=== PATIENT | female | born 1960 | race Caucasian/White ===

== ENCOUNTER → 2016-09-08 | Outpatient (CLI) | payer MEDICAID | LOC: MAMMO 14:10 | DX: Z12.31 Encounter for screening mammogram for malignant neoplasm of breast (principal); R92.2 Inconclusive mammogram | CPT/HCPCS: G0202 ==

== ENCOUNTER 2018-11-16 09:21 | Emergency (ER) | payer MEDICAID ==
[2018-11-16] MEDS ORDERED: AUGMENTIN 875-1 EAC1 PO (09:43)
[2018-11-16] MEDS ORDERED: NORCO 325 MG-51 TA1 PO (09:43)
[2018-11-16 11:12] VITALS: BP 161/97
[2018-11-17] MEDS ORDERED: DELTASONE20 M1 PO (14:58)
[2018-11-17] MEDS ORDERED: VALACYCLOVIR1 GM PO (14:59)
== END 2018-11-16 09:58 | disposition home or self-care (01) ==
LOC: ED 09:21
DX: H66.92 Otitis media, unspecified, left ear (principal); J01.90 Acute sinusitis, unspecified; G51.0 Bell's palsy; Z88.8 Allergy status to other drugs, medicaments and biological substances

== ENCOUNTER 2018-11-17 10:19 | Emergency (ER) | payer MEDICAID ==
[~2018-11-17 10:19] MED LIST: AUGMENTIN 875-1 EAC1 PO; NORCO 325 MG-51 TA1 PO
[2018-11-17 10:48] LABS: EOS # 0.1 (0.04-0.40); EOS % 1.3 % (1.0-5.0); HEMATOCRIT 46.7 % (37.0-47.0); HEMOGLOBIN 14.5 g/dL (12.5-16.0); MEAN CELL VOLUME 94 fl (78-100); MEAN CORPUSCULAR HEMOGLOBIN 29 pg (27-31); MEAN CORPUSCULAR HGB CONC 31 g/dL (33-37); MONO # 0.4 (0.20-0.80); NEU # 5.7 (1.40-6.50); PLATELET COUNT 222 K/mm3 (130-400); RED BLOOD COUNT 4.98 M/mm3 (4.10-5.30); WHITE BLOOD COUNT 8.3 K/mm3 (4.8-10.8)
[2018-11-17 11:12] LABS: ALBUMIN 3.8 g/dL (3.5-5.0); CALCIUM 9.1 mg/dL (8.4-10.2); POTASSIUM 4.3 mmol/L (3.5-5.1); TOTAL BILIRUBIN 0.4 mg/dL (0.2-1.2); TOTAL PROTEIN 7.4 g/dL (6.4-8.3)
[2018-11-17] MEDS ORDERED: DELTASONE20 M1 PO (14:58)
[2018-11-17] MEDS ORDERED: VALACYCLOVIR1 GM PO (14:59)
[2018-11-17 15:58] VITALS: BP 135/84
== END 2018-11-17 15:58 | disposition home or self-care (01) ==
LOC: ED 10:19
PROVIDERS: Nurse Practitioner
DX: G51.0 Bell's palsy (principal); F32.9 Major depressive disorder, single episode, unspecified; F41.0 Panic disorder [episodic paroxysmal anxiety]; F17.290 Nicotine dependence, other tobacco product, uncomplicated; Z88.8 Allergy status to other drugs, medicaments and biological substances
CPT/HCPCS: J2405; J2930; J3010; Q9967

== ENCOUNTER → 2019-01-02 | Outpatient (CLI) | payer MEDICAID ==
[~2019-01-02] MED LIST changes: +DELTASONE20 M1 PO; +VALACYCLOVIR1 GM PO
== END ==
LOC: RAD 08:59
DX: R91.8 Other nonspecific abnormal finding of lung field (principal); Z85.118 Personal history of other malignant neoplasm of bronchus and lung; Z90.710 Acquired absence of both cervix and uterus
CPT/HCPCS: Q9967

== ENCOUNTER → 2019-01-04 | Outpatient (CLI) | payer MEDICAID | LOC: RAD 12:00 | DX: C34.31 Malignant neoplasm of lower lobe, right bronchus or lung (principal); G31.9 Degenerative disease of nervous system, unspecified | CPT/HCPCS: A9585 ==